=== PATIENT | female | born 1950 | race Caucasian/White ===

== ENCOUNTER 2020-08-17 10:16 | Outpatient (CLI) | payer MEDICARE ==
[2020-08-17 11:37] LABS: BASOPHILS # (AUTO) 0.03 x10^3/uL (0-0.1); BASOPHILS % (AUTO) 1 % (0-1); EOSINOPHILS # (AUTO) 0.12 x10^3/uL (0-0.4); EOSINOPHILS % (AUTO) 2 % (1-7); LYMPHOCYTES # (AUTO) 3.46 x10^3/uL (1-3.4); LYMPHOCYTES % (AUTO) 47 % (22-44); MD NO; MEAN CORPUSCULAR HEMOGLOBIN 31.2 pg (27.0-34.8); MEAN CORPUSCULAR HGB CONC 32.2 g/dL (32.4-35.8); MEAN PLATELET VOLUME 8.6 fL (7.4-10.4); MONOCYTES # (AUTO) 0.34 x10^3/uL (0.2-0.8); MONOCYTES % (AUTO) 5 % (2-9); NEUTROPHILS # (AUTO) 3.46 x10^3/uL (1.8-6.8); NEUTROPHILS % (AUTO) 47 % (42-75); PLATELET COUNT 260 x10^3/uL (130-400); RED BLOOD COUNT 4.27 x10^6/uL (3.82-5.3); RED CELL DISTRIBUTION WIDTH 13.7 % (9.6-15.2)
[2020-08-17 12:12] LABS: MICROSCOPIC NOT IND
[2020-08-17] MEDS ORDERED: CHOL10003 PO-COUM (12:25)
[2020-08-17] MEDS ORDERED: LEVO25TA4 PO (12:25)
[2020-08-17] MEDS ORDERED: NAPR-685 PO (12:25)
[2020-08-17] MEDS ORDERED: OMEP-110 PO (12:25)
== END 2020-08-17 23:59 | disposition home or self-care (01) ==
LOC: STAR 10:16
PROVIDERS: ATTEND Orthopaedic Surgery
DX: Z01.818 Encounter for other preprocedural examination (principal); M17.12 Unilateral primary osteoarthritis, left knee; R00.2 Palpitations
CPT/HCPCS: 36415; 81003; 85025; 87081; 87806; 93005; G0475

== ENCOUNTER 2020-08-24 06:09 | Observation (INO) | payer MEDICARE ==
[~2020-08-24] VITALS: Ht 172.7 cm; Wt 92.1 kg
[~2020-08-24 06:09] MED LIST: CHOL10003 PO-COUM; LEVO25TA4 PO; NAPR-685 PO; OMEP-110 PO
[2020-08-24] MEDS ORDERED: morphine SULFATE/PF 1 MG/ML, 10ML ONE (06:33)
[2020-08-24] MEDS ORDERED: TRANEXAMIC ACID 100 MG/ML, 10ML ONE (06:33)
[2020-08-24] MEDS ORDERED: ROPIvacaine/PF 0.2%, 20 ML ONE (06:33)
[2020-08-24] MEDS ORDERED: KETOROLAC 60 MG/2 ML ONE (06:33)
[2020-08-24] MEDS ORDERED: SODIUM CHLORIDE 0.9% 50 ML ONE (06:34)
[2020-08-24] MEDS ORDERED: EPINEPHRINE 1 MG/ML, 1ML ONE (06:34)
[2020-08-24] MEDS ORDERED: BACITRACIN 50,000 UNIT ONE (06:34)
[2020-08-24] MEDS ORDERED: FENTANYL PF 250 MCG/5ML ONE ×2 (06:37→07:46)
[2020-08-24] MEDS ORDERED: MIDAZOLAM 1 MG/ML, 2ML ONE (06:37)
[2020-08-24] MEDS ORDERED: BUPIVACAINE/PF 0.25% ONE (06:37)
[2020-08-24] MEDS ORDERED: ONDANSETRON 2MG/ML, 2ML ONE (06:43)
[2020-08-24] MEDS ORDERED: PHENYLEPHRINE 10 MG/ML ONE (06:43)
[2020-08-24] MEDS ORDERED: CEFAZOLIN 1,000 MG ONE (06:43)
[2020-08-24] MEDS ORDERED: ROCURONIUM 10MG/ML,5ML ONE (06:43)
[2020-08-24] MEDS ORDERED: DEXAMETHASONE 4 MG/ML, 1ML ONE (06:43)
[2020-08-24] MEDS ORDERED: GLYCOPYRROLATE 0.2MG/1ML, 5ML ONE (06:43)
[2020-08-24] MEDS ORDERED: NEOSTIGMINE 1 MG/ML, 10ML ONE (06:43)
[2020-08-24] MEDS ORDERED: PROPOFOL 10 MG/ML, 20ML ONE (06:43)
[2020-08-24] MEDS ORDERED: LACTATED RINGERS 1,000 ML IV SCH (06:51)
[2020-08-24] MEDS ORDERED: CHLORHEXIDINE 15 ML UDC MM ONE (07:00)
[2020-08-24] MEDS ORDERED: hydrALAzine 20 MG/ML, 1ML IV PRN (07:00)
[2020-08-24] MEDS ORDERED: VANCOMYCIN PMX 1GM/200ML 200 ML IV ONE (07:00)
[2020-08-24] MEDS ORDERED: OXYcodone 5 MG/5 ML ORAL.SOL UDC PO PRN (07:00)
[2020-08-24] MEDS ORDERED: ACETAMINOPHEN 325 MG TABLET PO PRN ×2 (07:00→07:30)
[2020-08-24] MEDS ORDERED: LABETALOL 5MG/ML, 20ML IV PRN (07:00)
[2020-08-24] MEDS ORDERED: morphine SULFATE 10 MG/ML, 1ML IVPush PRN (07:00)
[2020-08-24] MEDS ORDERED: HALOPERIDOL 5 MG/ML IV PRN (07:00)
[2020-08-24] MEDS ORDERED: PROMETHAZINE 25 MG/ML, 1ML IVPush PRN (07:00)
[2020-08-24] MEDS ORDERED: MEPERIDINE/PF 25MG/0.5ML IVPush PRN (07:00)
[2020-08-24] MEDS ORDERED: HYDROmorphone 1 MG/ML, 1ML INJ IVPush PRN (07:00)
[2020-08-24 07:01] VITALS: BP 152/77
[2020-08-24] MEDS: D5%-0.45% NACL 1,000 ML IV SCH ×4 (07:24→22:24)
[2020-08-24] MEDS ORDERED: ONDANSETRON 2MG/ML, 2ML IVPush PRN (07:30)
[2020-08-24] MEDS ORDERED: LORazepam 2 MG/ML, 1ML IVPush PRN (07:30)
[2020-08-24] MEDS ORDERED: VANCOMYCIN PMX 1GM/200ML 200 ML IVPB ONE (07:30)
[2020-08-24] MEDS ORDERED: ZOLPIDEM 5MG TABLET PO PRN (07:30)
[2020-08-24] MEDS ORDERED: FENTANYL PF 100 MCG/2ML ONE (09:46)
[2020-08-24] MEDS ORDERED: ACETAMINOPHEN 650 MG/20.3 ML UDC ONE (09:46)
[2020-08-24] MEDS ORDERED: OXYcodone 5 MG/5 ML ORAL.SOL UDC ONE (09:46)
[2020-08-24] MEDS: FENTANYL PF 100 MCG/2ML IVPush PRN ×3 (09:52→10:12)
[2020-08-24] MEDS ORDERED: DIPHENHYDRAMINE 25 MG CAPSULE PO PRN (11:00)
[2020-08-24] MEDS: morphine SULFATE 10 MG/ML, 1ML IVPush PRN (11:10)
[2020-08-24] MEDS ORDERED: LEVOTHYROXINE DOSE MC SCH (11:30)
[2020-08-24] MEDS ORDERED: TRANEXAMIC ACID 1,000 MG in SODIUM CHLORIDE 0.9% 100 ML IV ONE (12:00)
[2020-08-24 12:15] VITALS: BP 124/60
[2020-08-24] MEDS: OXYcodone/APAP 7.5/325MG TABLET PO PRN ×2 (14:30→18:39)
[2020-08-24] MEDS: CEFAZOLIN PMX 2GM/50ML 50 ML IVPB SCH (17:51)
[2020-08-24 19:05] VITALS: BP 116/66
[2020-08-24 23:54] VITALS: BP 114/55
[2020-08-25] MEDS: OXYcodone/APAP 7.5/325MG TABLET PO PRN ×4 (00:11→13:01)
[2020-08-25] MEDS: CEFAZOLIN PMX 2GM/50ML 50 ML IVPB SCH ×2 (02:27→10:00)
[2020-08-25] MEDS: morphine SULFATE 10 MG/ML, 1ML IVPush PRN (02:35)
[2020-08-25] MEDS: D5%-0.45% NACL 1,000 ML IV SCH ×2 (03:24→08:24)
[2020-08-25 04:30] VITALS: BP 101/61
[2020-08-25] MEDS ORDERED: OMEPRAZOLE 20 MG CAPSULE.DR PO SCH (06:00)
[2020-08-25] MEDS ORDERED: LEVOTHYROXINE 112 MCG TABLET PO SCH (06:00)
[2020-08-25 07:25] VITALS: BP 99/60
[2020-08-25] MEDS ORDERED: VANCOMYCIN PMX 1GM/200ML 200 ML IVPB ONE (07:30)
[2020-08-25] MEDS ORDERED: ASPIRIN 325 MG TABLET EC PO SCH (08:00)
[2020-08-25] MEDS ORDERED: NAPROXEN 500 MG TABLET PO SCH (09:00)
[2020-08-25] MEDS ORDERED: CHOLECALCIFEROL 1,000 UNIT TABLET PO SCH (09:00)
[2020-08-25] MEDS ORDERED: DOCUSATE 100 MG CAPSULE PO SCH (09:00)
== END 2020-08-25 14:18 | disposition home or self-care (01) ==
LOC: OUT 06:09 → 4NE 10:40 → OUT 20:30 → 4NE 20:30 → DCLOUNGE 08-25 14:07
PROVIDERS: ADMIT Orthopaedic Surgery; ATTEND Orthopaedic Surgery
DX: M17.12 Unilateral primary osteoarthritis, left knee (principal); Z20.828 Contact with and (suspected) exposure to other viral communicable diseases; K21.9 Gastro-esophageal reflux disease without esophagitis; E03.9 Hypothyroidism, unspecified; Z87.891 Personal history of nicotine dependence; Z79.899 Other long term (current) drug therapy
CPT/HCPCS: 27447; 36415; 72170; 73560; 87635; 96365; 96366; 96367; 96375; 96376; 97161; 97165; C1713; C1776; G0378; J0171; J0690; J1100; J1885; J2250; J2270; J2274; J2370; J2405; J2704; J2710; J2795; J3010; J3370; J7120

== ENCOUNTER 2021-07-21 11:52 | Outpatient (CLI) | payer MEDICARE | END 2021-07-21 23:59 | disposition home or self-care (01) | LOC: CARD 11:52 | DX: R07.89 Other chest pain (principal) | CPT/HCPCS: 93017 ==